=== PATIENT | female | born 1975 | race American Indian/Alaskan Native ===

== ENCOUNTER 2016-11-11 09:37 | Outpatient (CLI) | payer BC ==
--- NOTE | 2016-11-11 11:02 | Mammography Report ---
Bilateral mammogram: No previous studies available for comparison. CAD study utilized. Findings: Predominance of adipose tissue bilaterally. Focal ill-defined asymmetry upper posterior right breast and subareolar area left breast and mid left breast. No microcalcification or normal exam. Impression Focal asymmetry is seen right and left breast as detailed above. Comparison with previous studies recommended. Previous studies not available spot limited sonographic examination advised. BI-RADS CATEGORY: 0 = Needs additional imaging evaluation ACR BI-RADS MAMMOGRAPHIC CODES: 0 = Needs additional imaging evaluation; 1 = Negative; 2 = Benign; 3 = Probably benign; 4 = Suspicious; 5 = Malignant; 6 = Known biopsy-proven malignancy COMMENT: 1. Dense breast tissue, i.e., adenosis, fibrocystic changes, etc., may obscure an underlying neoplasm. 2. Approximately 10% of cancers are not detected with mammography. 3. A negative mammography report should not delay biopsy if a clinically suspicious mass is present. COMMENT: Patient follow-up letters are generated in [employer].
== END 2016-11-11 09:38 | disposition home or self-care (01) ==
LOC: MAMMO 09:37
PROVIDERS: ATTEND Obstetrics & Gynecology
DX: Z12.31 Encounter for screening mammogram for malignant neoplasm of breast (principal); D64.9 Anemia, unspecified
CPT/HCPCS: 77067; G0202